=== PATIENT | female | born 1975 | race Caucasian/White ===

== ENCOUNTER 2018-08-25 05:33 | Emergency (ER) | payer BC, OTHER ==
[~2018-08-25] VITALS: Ht 165.1 cm; Wt 95.3 kg
[2018-08-25 05:53] VITALS: BP_SYST 135
[2018-08-25] MEDS ORDERED: KETOROLAC TROMETHAMINE 30 MG VIAL IVP ONE (06:00)
[2018-08-25] MEDS ORDERED: ONDANSETRON HCL 4 MG/2 ML VIAL IVP ONE (06:00)
[2018-08-25] MEDS ORDERED: NACL 0.9% 1,000 ML IV ONE (06:00)
[2018-08-25] MEDS ORDERED: PRAV20TA PO (06:02)
[2018-08-25] MEDS ORDERED: CANA300T PO (06:02)
[2018-08-25 06:06] LABS: BILIRUBIN,URINE NEGATIVE (NEGATIVE); CLARITY/URINE SL HAZY (CLEAR); COLOR,URINE YELLOW (YELLOW); GLUCOSE,URINE 3+ (NEGATIVE); KETONES,URINE 1+ (NEGATIVE); LEUKOCYTE ESTERASE ,URINE NEGATIVE (NEGATIVE); NITRITE, URINE NEGATIVE (NEGATIVE); PH,URINE 5.5 (5.0-8.0); PROTEIN URINE NEGATIVE (NEGATIVE); UROBILINOGEN,URINE 0.2 (0.2-1.0)
[2018-08-25 06:08] LABS: BLOOD, URINE TRACE (NEGATIVE)
[2018-08-25 06:12] LABS: BACTERIA,URINE FEW /HPF (None Seen); WBC,URINE 0-3 /HPF (0-3)
[2018-08-25 06:53] LABS: BASOPHILS # (AUTO) 0.2 K/uL (0.0-0.2); BASOPHILS % (AUTO) 1.4 % (0.0-2.0); EOSINOPHILS # (AUTO) 0.1 K/uL (0.0-0.4); EOSINOPHILS % (AUTO) 0.9 % (0.0-4.0); HEMOGLOBIN 17.3 g/dL (12.0-16.0); LYMPHOCYTES # (AUTO) 0.5 K/uL (1.0-5.5); LYMPHOCYTES % (AUTO) 3.7 % (20.5-51.5); MEAN CORPUSCULAR HEMOGLOBIN 29 pg (27-31); MEAN CORPUSCULAR HGB CONC 34 % (32-36); MEAN CORPUSCULAR VOLUME 85 fL (79.0-98.0); MONOCYTES # (AUTO) 0.4 K/uL (0.0-1.0); MONOCYTES % (AUTO) 2.7 % (1.7-9.3); NEUTROPHILS # (AUTO) 12.6 K/uL (1.8-7.7); NEUTROPHILS % (AUTO) 91.3 % (40.0-70.0); PLATELET COUNT (AUTO) 288 K/uL (130-430); WHITE BLOOD COUNT (AUTO) 13.8 K/uL (4.8-10.8)
[2018-08-25 07:02] LABS: CALCIUM 9.1 mg/dL (8.4-11.0); CREATININE 0.69 mg/dL (0.55-1.30); POTASSIUM 3.8 mmol/L (3.5-5.1)
[2018-08-25 07:06] LABS: ALBUMIN 3.8 g/dL (3.4-4.8); TOTAL BILIRUBIN 0.5 mg/dL (0.0-1.0)
[2018-08-25 07:42] VITALS: BP_SYST 130
== END 2018-08-25 07:44 | disposition home or self-care (01) ==
LOC: SED 05:33
DX: R10.13 Epigastric pain (principal); R11.2 Nausea with vomiting, unspecified; R19.7 Diarrhea, unspecified; E11.9 Type 2 diabetes mellitus without complications; Z88.2 Allergy status to sulfonamides
CPT/HCPCS: 36415; 71045; 76700; 80053; 81000; 81025; 82550; 82962; 83605; 83690; 85025; 85610; 85730; 87040; 93005; 96361; 96374; 96375; 99284; J1885; J2405; J7030